=== PATIENT | male | born 1965 | race Caucasian/White ===

== ENCOUNTER 2021-04-11 14:35 | Inpatient (IN) | payer BC ==
--- NOTE | 2021-04-11 14:59 | EDM.PDOC ---
ED HPI GENERAL MEDICAL PROBLEM - General Chief Complaint: Respiratory Problem Stated Complaint: shortness of breath Time Seen by Provider: 04/11/21 14:35 Source of Information: Reports: Patient History Limitations: Reports: No Limitations - History of Present Illness INITIAL COMMENTS - FREE TEXT/NARRATIVE: Fili is a 55 year old male who presents to ER with complaints of increased shortness of breath, mild chest discomfort. Patient states noted same last evening when playing pickle ball. Tried to play through it but didn't tolerate well. Thought related to possibly being back in atrial fib but when rested, seemed to get better. Has history of paroxysmal atrial fib. Does take coumadin daily for this. Was taken off metoprolol some time ago as had been doing well. Does not believe he has had issues with atrial fib now for possibly 6 months. 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 Called his who made an appointment at the clinic but enroute here, felt more short of breath and lightheaded. Decided to call a friend to drive him the rest of the way here as was worried about passing out as his arms and face started to feel tingly. Admits to an ache in his chest, not real painful. No nausea/vomiting or diaphoresis. No fevers. No cough. Duration: Hour(s):, Waxing/Waning Location: Reports: Chest Quality: Reports: Ache Severity: Mild Improves with: Reports: Rest Worsens with: Reports: Movement Associated Symptoms: Reports: Chest Pain, Shortness of Breath. Denies: Confusion, Cough, Diaphoresis, Fever/Chills, Headaches, Loss of Appetite, Nausea/Vomiting, Syncope - Related Data Allergies Allergy/AdvReac Type Severity Reaction Status Date / Time No Known Allergies Allergy Verified 04/11/21 16:01 Home Meds: Home Meds Escitalopram [Lexapro] 10 mg PO DAILY 05/14/18 [History] Warfarin [Coumadin] 10 mg PO DAILY 04/11/21 [History] Warfarin [Coumadin] 15 mg PO DAILY 04/11/21 [History] Past Medical History Cardiovascular History: Reports: Afib Psychiatric History: Reports: Depression - Past Surgical History HEENT Surgical History: Reports: Other (See Below) Other HEENT Surgeries/Procedures: septoplasty GI Surgical History: Reports: Hernia Repair/Other ED ROS GENERAL - Review of Systems Review Of Systems: See Below Constitutional: Reports: Malaise. Denies: Fever, Chills, Weakness, Fatigue, Decreased Appetite HEENT: Denies: Ear Pain, Rhinitis, Sinus Problem, Throat Pain Respiratory: Reports: Shortness of Breath. Denies: Cough Cardiovascular: Reports: Chest Pain, Lightheadedness. Denies: Edema Endocrine: Reports: Fatigue GI/Abdominal: Denies: Abdominal Pain, Constipation, Diarrhea, Nausea, Vomiting : Reports: No Symptoms Musculoskeletal: Reports: No Symptoms Skin: Reports: No Symptoms Neurological: Reports: No Symptoms Psychiatric: Reports: No Symptoms ED EXAM, GENERAL - Physical Exam Exam: See Below Exam Limited By: No Limitations General Appearance: Alert, WD/WN, Mild Distress Ears: Normal External Exam, Normal TMs Nose: Normal Inspection, Normal Mucosa, No Blood Throat/Mouth: Normal Inspection, Normal Oropharynx Head: Normocephalic Neck: Normal Inspection, Supple, Non-Tender Respiratory/Chest: No Respiratory Distress, Lungs Clear, Normal Breath Sounds Cardiovascular: Irregularly Irregular GI/Abdominal: Normal Bowel Sounds, Soft, Non-Tender Extremities: Normal Inspection, No Pedal Edema Neurological: Alert, Oriented Skin Exam: Warm, Dry Course - Vital Signs Last Recorded V/S: Last Vital Signs Temp 98.6 F 04/11/21 14:35 Pulse 115 H 04/11/21 14:35 Resp 20 04/11/21 14:35 BP 134/77 04/11/21 14:35 Pulse Ox 99 04/11/21 14:35 - Orders/Labs/Meds Orders: Active Orders 24 hr Category Date Time Status Patient Status [ADT] Routine ADT 04/11/21 17:27 Active Cardiac Monitoring [RC] CONTINUOUS Care 04/11/21 17:28 Active Height and Weight [RC] UPON Care 04/11/21 17:27 Active Intake and Output [RC] QSHIFT Care 04/11/21 17:28 Active May Shower [RC] ASDIRECTED Care 04/11/21 17:27 Active Oxygen Therapy [RC] PRN Care 04/11/21 17:27 Active Up With Assistance [RC] ASDIRECTED Care 04/11/21 17:27 Active VTE/DVT Education [RC] PER UNIT ROUTINE Care 04/11/21 17:27 Active Vital Signs [RC] Q4H Care 04/11/21 17:27 Active Consult to Case Management/Winery Worker [CONS] Cons 04/11/21 17:27 Active Routine Heart Healthy Diet [DIET] Diet 04/11/21 Breakfast Active Chest 2V [CR] Stat Exams 04/11/21 14:49 Ordered BASIC METABOLIC PANEL,BMP [CHEM] Routine Lab 04/12/21 05:11 Ordered CBC WITH AUTO DIFF [HEME] Routine Lab 04/12/21 05:11 Ordered INR,PT,PROTHROMBIN TIME [COAG] Routine Lab 04/12/21 05:11 Ordered MAGNESIUM [CHEM] Stat Lab 04/11/21 17:32 Ordered Acetaminophen [TylenoL] Med 04/11/21 17:27 Ordered 650 mg PO Q4H PRN Diltiazem 125 MG in NS Adv @ 5 MG/HR(125ml) Med 04/11/21 16:15 Ordered Diltiazem 125 mg Sodium Chloride 0.9% [Normal Saline AdvBag] 100 ml IV TITRATE Escitalopram [Lexapro] Med 04/12/21 08:00 Ordered 10 mg PO DAILY Pharmacy Consult [Consult to Pharmacy] Med 04/11/21 17:30 Ordered 1 each .XX ASDIRECTED Warfarin [Coumadin] Med 04/12/21 08:00 Ordered 10 mg PO DAILY Warfarin [Coumadin] Med 04/12/21 08:00 Ordered 15 mg PO DAILY Resuscitation Status Routine Resus Stat 04/11/21 17:27 Ordered Medication Orders Acetaminophen (Acetaminophen 325 Mg Tab) 650 mg PO Q4H PRN PRN Reason: Pain (Mild 1-3)/fever Diltiazem HCl 125 mg/ Sodium (Chloride) 125 mls @ 5 mls/hr IV TITRATE KIMI; Protocol Last Admin: 04/11/21 17:26 Dose: 5 mg/hr, 5 mls/hr Documented by: Non-Formulary Medication (Escitalopram [Lexapro]) 10 mg PO DAILY [facility] Pharmacy Consult (Pharmacy Consult Order) 1 each .XX ASDIRECTED KIMI Warfarin Sodium (Warfarin 5 Mg Tab) 10 mg PO DAILY [facility] Warfarin Sodium (Warfarin 5 Mg Tab) 15 mg PO DAILY [facility] Labs: Laboratory Tests 04/11/21 04/11/21 04/11/21 Range/Units 14:59 14:59 14:59 WBC 7.1 (4.0-10.0) x10^3/uL RBC 5.12 (4.5-6.0) x10^6/uL Hgb 15.2 (14.0-18.0) g/dL Hct 42.6 (40.0-52.0) % MCV 83.2 (78.0-93.0) fL MCH 29.7 (26.0-32.0) pg MCHC 35.7 (32.0-36.0) g/dL RDW Coeff of Rubia 12.5 (10.0-15.0) % Plt Count 193 (130-400) x10^3/uL Immature Gran % (Auto) 0.10 (0.00-0.43) % Neut % (Auto) 55.8 (50.0-80.0) % Lymph % (Auto) 32.3 (25.0-50.0) % Falls % (Auto) 8.1 (2.0-11.0) % Eos % (Auto) 2.7 (0.0-4.0) % Baso % (Auto) 1.0 (0.2-1.2) % Neut # (Auto) 4.0 (1.8-7.7) x10^3/uL Lymph # (Auto) 2.3 (1.0-4.8) x10^3/uL Falls # (Auto) 0.6 (0.0-0.8) x10^3/uL Eos # (Auto) 0.2 (0.0-0.5) x10^3/uL Baso # (Auto) 0.1 (0.0-0.2) x10^3/uL Immature Gran # (Auto) 0.01 (0.00-0.07) x10^3/uL PT (9.9-12.5) SEC INR (2.0-3.5) D-Dimer, Quantitative 0.35 (<=0.58) mg/LFEU Sodium 140 (136-145) mmol/L Potassium 3.7 (3.5-5.1) mmol/L Chloride 106 (98-107) mmol/L Carbon Dioxide 20 L (21-32) mmol/L Anion Gap 17.7 H (5-15) mmol/L BUN 16 (7-18) mg/dL Creatinine 0.9 (0.70-1.30) mg/dL Est Cr Clr Drug Dosing TNP Estimated GFR (MDRD) > 60 Glucose 109 H (70-99) mg/dL Calcium 9.4 (8.5-10.1) mg/dL Corrected Calcium 9.5 (8.5-10.1) mg/dL Total Bilirubin 1.3 H (0.2-1.0) mg/dL AST 15 (15-37) U/L ALT 26 (16-63) U/L Alkaline Phosphatase 73 (46-116) U/L Lactate Dehydrogenase 176 (85-227) U/L Creatine Kinase 118 (39-308) U/L Troponin I High Sens 7 (<=76) ng/L C-Reactive Protein 0.8 (<=0.9) mg/dL Total Protein 7.3 (6.4-8.2) g/dL Albumin 3.9 (3.4-5.0) g/dL Globulin 3.4 Albumin/Globulin Ratio 1.15 SARS CoV-2 RNA Rapid MICHAEL (NEGATIVE) 04/11/21 04/11/21 Range/Units 14:59 16:23 WBC (4.0-10.0) x10^3/uL RBC (4.5-6.0) x10^6/uL Hgb (14.0-18.0) g/dL Hct (40.0-52.0) % MCV (78.0-93.0) fL MCH (26.0-32.0) pg MCHC (32.0-36.0) g/dL RDW Coeff of Rubia (10.0-15.0) % Plt Count (130-400) x10^3/uL Immature Gran % (Auto) (0.00-0.43) % Neut % (Auto) (50.0-80.0) % Lymph % (Auto) (25.0-50.0) % Falls % (Auto) (2.0-11.0) % Eos % (Auto) (0.0-4.0) % Baso % (Auto) (0.2-1.2) % Neut # (Auto) (1.8-7.7) x10^3/uL Lymph # (Auto) (1.0-4.8) x10^3/uL Falls # (Auto) (0.0-0.8) x10^3/uL Eos # (Auto) (0.0-0.5) x10^3/uL Baso # (Auto) (0.0-0.2) x10^3/uL Immature Gran # (Auto) (0.00-0.07) x10^3/uL PT 13.8 H (9.9-12.5) SEC INR 1.2 L (2.0-3.5) D-Dimer, Quantitative (<=0.58) mg/LFEU Sodium (136-145) mmol/L Potassium (3.5-5.1) mmol/L Chloride (98-107) mmol/L Carbon Dioxide (21-32) mmol/L Anion Gap (5-15) mmol/L BUN (7-18) mg/dL Creatinine (0.70-1.30) mg/dL Est Cr Clr Drug Dosing Estimated GFR (MDRD) Glucose (70-99) mg/dL Calcium (8.5-10.1) mg/dL Corrected Calcium (8.5-10.1) mg/dL Total Bilirubin (0.2-1.0) mg/dL AST (15-37) U/L ALT (16-63) U/L Alkaline Phosphatase (46-116) U/L Lactate Dehydrogenase (85-227) U/L Creatine Kinase (39-308) U/L Troponin I High Sens (<=76) ng/L C-Reactive Protein (<=0.9) mg/dL Total Protein (6.4-8.2) g/dL Albumin (3.4-5.0) g/dL Globulin Albumin/Globulin Ratio SARS CoV-2 RNA Rapid MICHAEL Negative (NEGATIVE) Meds: Medications Generic Name Dose Route Start Last Admin Trade Name Freq PRN Reason Stop Dose Admin Acetaminophen 650 mg 04/11/21 17:27 Acetaminophen 325 Mg Tab PO Q4H PRN Pain (Mild 1-3)/fever Diltiazem HCl 125 mg/ Sodium 125 mls @ 5 mls/hr 04/11/21 16:15 04/11/21 17:26 Chloride IV 5 mg/hr TITRATE KIMI 5 mls/hr Administration Protocol 5 MG/HR Non-Formulary Medication 10 mg 04/12/21 08:00 Escitalopram [Lexapro] PO DAILY [facility] Pharmacy Consult 1 each 04/11/21 17:30 Pharmacy Consult Order .XX ASDIRECTED [facility] Warfarin Sodium 10 mg 04/12/21 08:00 Warfarin 5 Mg Tab PO DAILY [facility] Warfarin Sodium 15 mg 04/12/21 08:00 Warfarin 5 Mg Tab PO DAILY [facility] Discontinued Medications Generic Name Dose Route Start Last Admin Trade Name Freq PRN Reason Stop Dose Admin Diltiazem HCl 10 mg 04/11/21 16:00 04/11/21 16:18 Diltiazem 50 Mg/10 Ml Sdv IVPUSH 04/11/21 16:01 10 mg ONETIME ONE Administration - Re-Assessments/Exams Free Text/Narrative Re-Assessment/Exam: 04/11/21 1600 Contacted [facility] and spoke with cardiology in regards to rate control related to his current atrial fib with lower blood pressure. Suggested Cardizem push and drip to determine if will convert to NSR and for rate control. Patient aware. Contacted Brock Wright in regards to admit. 04/11/21 17:20 Brock Wright here with patient. Departure - Departure Time of Disposition: 17:35 Disposition: Admitted As Inpatient 65 Condition: Fair Clinical Impression: Atrial fibrillation with rapid ventricular response Referrals: Brea Spain, ANALYTICAL MANAGER [Primary Care Provider] - Forms: ED Department Discharge Sepsis Event Note (ED) - Focused Exam Vital Signs: Vital Signs Temp Pulse Resp BP Pulse Ox 04/11/21 14:35 98.6 F 115 H 20 134/77 99 - My Orders Last 24 Hours: My Active Orders 04/11/21 14:49 Chest 2V [CR] Stat 04/11/21 16:15 Diltiazem 125 MG in NS Adv @ 5 MG/HR(125ml) Diltiazem 125 mg Sodium Chloride 0.9% [Normal Saline AdvBag] 100 ml IV TITRATE - Assessment/Plan Last 24 Hours: My Active Orders 04/11/21 14:49 Chest 2V [CR] Stat 04/11/21 16:15 Diltiazem 125 MG in NS Adv @ 5 MG/HR(125ml) Diltiazem 125 mg Sodium Chloride 0.9% [Normal Saline AdvBag] 100 ml IV TITRATE
[2021-04-11 15:31] LABS: CHLORIDE,CL 106 mmol/L (98-107); SODIUM,NA 140 mmol/L (136-145)
[2021-04-11 15:36] LABS: ANION GAP 17.7 mmol/L (5-15)
[2021-04-11] MEDS ORDERED: Diltiazem 50 MG/10 ML SDV IVPUSH ONE (16:00)
[2021-04-11] MEDS ORDERED: Diltiazem 125 MG in Sodium Chloride 0.9% 100 ML IV SCH (16:15)
[2021-04-11] MEDS ORDERED: Acetaminophen 325 MG Tab PO PRN (17:27)
--- NOTE | 2021-04-11 21:51 | HP ---
Admission history and physical to the [facility] acute care floor. CHIEF COMPLAINT: Shortness of breath. HISTORY OF PRESENT ILLNESS: A 55-year-old male patient with a past medical history of atrial fibrillation on Coumadin and depression, presented to the emergency room at [facility] for increased shortness of breath, and mild chest discomfort. The patient states that he noticed his symptoms starting last evening while he was playing pickleball. The patient tried to play through, but he did not tolerate it very well. The patient thought it possibly was related to his atrial fibrillation. He did try to rest, which seemed to make his symptoms better. The patient was taken off metoprolol some time ago and has been doing well. The patient states he believes he has not had any problems with his atrial fibrillation for about the past 6 months. 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 In the emergency room, telemetry showed uncontrolled atrial fibrillation. The patient's INR is subtherapeutic at 1.2. The patient was given a bolus of Cardizem, which did slow his rate into the 1-teens. The patient was started on a Cardizem drip. The patient states that he did not have any headaches, dizziness, or lightheadedness. His shortness of breath improved. No cough. Chest discomfort improved. No leg swelling. No palpitations. The patient denies any abdominal complaints. No skin problems. No recent infections. The patient has not had any fevers or chills. PAST MEDICAL HISTORY: 1. Sleep apnea. 2. Depression. 3. Metabolic syndrome. 4. Obesity. 5. Chronic atrial fibrillation. 6. High risk medication use on anticoagulation. PAST SURGICAL HISTORY: 1. Umbilical hernia repair. 2. Nasal septum surgery. FAMILY HISTORY: Noncontributory. SOCIAL HISTORY: The patient drinks alcohol occasionally. No drug use. The patient has never been a smoker. No secondhand smoke. The patient is . No vaping. LABORATORY STUDIES: 1. CBC: White blood cell count 7.1, hemoglobin 15.2, hematocrit 42.6, platelets 193,000. 2. D-dimer 0.35. 3. PT 13.8, INR 1.2. 4. CMP: Sodium 140, potassium 3.7, chloride 106, CO2 20, anion gap 17.7, BUN 16, creatinine 0.9, GFR greater than 60, glucose 109, calcium 9.4, bilirubin 1.3, AST 15, ALT 26, alkaline phosphatase 73. 5. LDH 176. 6. Creatine kinase 118. 7. Troponin 7. 8. CRP 0.8. 9. COVID-19 - negative. MEDICATIONS: 1. Lexapro 10 mg 1 tablet p.o. daily. 2. Coumadin 10 mg on Sundays, Tuesdays, . 3. Coumadin 15 mg on Mondays, Wednesdays, Fridays, and Saturdays. REVIEW OF SYSTEMS: See HPI. PHYSICAL EXAMINATION: Vital Signs: Temperature 98.6, pulse 115, blood pressure 134/77, respiratory rate 20, oxygen saturation 99% on room air, weight 308 pounds, height 73.5 inches. Skin: Intact, warm and dry. Respiratory: Lungs are clear throughout. Cardiovascular: Irregularly irregular rhythm, tachycardia, no murmurs. Abdomen: Soft, obese. Bowel sounds are normoactive x4. Extremities: No edema. Neurological: The patient is alert. The patient is oriented to person, place, and time. No focal neurological deficits. ASSESSMENT: 1. Uncontrolled atrial fibrillation. 2. Obstructive sleep apnea. 3. Major depressive disorder. 4. High-risk medication use on anticoagulation. PLAN: A 55-year-old male patient with a past medical history of atrial fibrillation and depression, will be admitted to the acute care floor at [facility] for uncontrolled atrial fibrillation. The patient will be on a Cardizem drip and telemetry. Continue home medications the same. DVT prophylaxis, on Coumadin. The patient is a code 1. The patient does wish to transfer to a higher level of care should the need arise. We will transition the patient over to p.o. Cardizem when appropriate. The patient agrees with plan of care and the admission. This patient was seen and examined by me as an [facility] provider. TB: 04/11/2021 17:43:58 MODL: 04/11/2021 21:45:10 /[id number]
[2021-04-12 07:24] LABS: ANION GAP 14.9 mmol/L (5-15); CHLORIDE,CL 108 mmol/L (98-107); SODIUM,NA 142 mmol/L (136-145)
[2021-04-12] MEDS ORDERED: Citalopram 20 MG Tab PO SCH (08:00)
[2021-04-12] MEDS ORDERED: Diltiazem 120 MG Cap.CD PO SCH (08:00)
--- NOTE | 2021-04-12 16:20 | CR ---
[id number] RAD/RAD Chest PA And Lateral EXAM: RAD Chest PA And Lateral INDICATION: Shortness of breath and atrial fibrillation. COMPARISON: None. DISCUSSION: The heart and lungs are normal in appearance. IMPRESSION: 1. Negative exam. Alvino lPunkett MD 04/12/21 [id number] Thank you for allowing us to participate in the care of your patient.
--- NOTE | 2021-04-12 18:42 | PCM.EKG ---
#1 Interpretation EKG Date: 04/11/21 Rhythm: A-Fib P-Wave: Absent QRS: Normal ST-T: Depressed QT: Prolonged Comparison: NA - No Prior EKG
--- NOTE | 2021-04-12 19:35 | DISCH ---
ADMITTING DIAGNOSES: 1. Uncontrolled atrial fibrillation. 2. Obstructive sleep apnea. 3. Major depressive disorder. 4. High-risk medication use, on anticoagulation. DISCHARGE DIAGNOSES: 1. Longstanding atrial fibrillation, controlled on medication. 2. Obstructive sleep apnea, stable. 3. Major depressive disorder, stable. 4. High-risk medication use, on anticoagulation. HISTORY OF PRESENT ILLNESS: This 55-year-old male patient presented to emergency room at [facility] yesterday afternoon for shortness of breath. The patient was found to be in uncontrolled atrial fibrillation. The patient has chronic atrial fibrillation, but has not been on any medication recently for rate control. The patient states that over the past couple of days he was feeling more short of breath and tired. He states yesterday morning he noticed that his heart rate seemed fast. While in the emergency room, the patient received Cardizem IV bolus, followed by a Cardizem drip. The patient's laboratory work was unremarkable. EKG showed uncontrolled atrial fibrillation with heart rates in the 140s to 160s. BRIEF HOSPITAL COURSE: The patient remained hemodynamically stable and afebrile. The patient was started on the Cardizem drip and switched to p.o. The patient's heart rate remained under 100 on the Cardizem p.o. The patient did not have any issues with urination or bowel movements. No shortness of breath or cough. No chest pain or palpitations. No leg swelling. The patient did not have any headaches, dizziness or lightheadedness. No fevers or chills. CONSULTATIONS: Case Management for discharge planning. DIET: Heart healthy. ACTIVITY: As tolerated. DISCHARGE LABORATORY WORK: 1. CBC: White blood cell count 5.5, hemoglobin 14.1, hematocrit 40.5, platelets 176,000. 2. PT 15.9, INR 1.4. 3. BMP: Sodium 142, potassium 3.9, chloride 108, CO2 of 23, anion gap 14.9, BUN 16, creatinine 0.9, GFR greater than 60, glucose 132, calcium 8.8. DISCHARGE MEDICATIONS: 1. Cardizem CD 120 mg p.o. daily. 2. Lexapro 10 mg 1 tablet p.o. daily. 3. Coumadin 10 mg p.o. on Thursday, Thursday, . 4. Coumadin 15 mg 1 tablet p.o. Thursday, Thursday, Thursday, Thursday. REVIEW OF SYSTEMS: See HPI. DISCHARGE PHYSICAL EXAMINATION: Vital Signs: Temperature 97.5, pulse 80, blood pressure 118/83, respiratory rate 20, oxygen saturation 98% on room air. Skin: Intact, warm, and dry. Respiratory: Lungs are clear throughout. Cardiovascular: Irregularly irregular rhythm, regular rate, no murmur. Abdomen: Soft, nontender. Bowel sounds are normoactive x4. Extremities: No edema. Neurological: The patient is alert. The patient is oriented to person, place, and time. No focal neurological deficits. ASSESSMENT: 1. Atrial fibrillation, controlled. 2. Obstructive sleep apnea. 3. Major depressive disorder. 4. High-risk medication use, on anticoagulation. PLAN: The patient will be discharged home today. The patient will be started on Cardizem 120 mg p.o. daily. His rate is well controlled on this medication. No changes with any other medications. The patient needs to follow with his PCP in 1 week for a recheck, sooner if any problems. Continue all other medications the same. The patient was discharged in hemodynamically stable condition. TB: 04/12/2021 13:17:39 MODL: 04/12/2021 19:28:06 /[id number]
[2021-04-12] MEDS ORDERED: Warfarin 5 MG Tab PO SCH (20:00)
[2021-04-14] MEDS ORDERED: Warfarin 5 MG Tab PO SCH (20:00)
== END 2021-04-12 15:00 | disposition home or self-care (01) | DRG 201 ==
LOC: VM.ED 14:35 → VM.MS 16:33
PROVIDERS: ADMIT Nurse Practitioner Family; ATTEND Nurse Practitioner Family
DX: I48.91 Unspecified atrial fibrillation (principal); G47.33 Obstructive sleep apnea (adult) (pediatric); F32.9 Major depressive disorder, single episode, unspecified; E66.9 Obesity, unspecified; E88.81 Metabolic syndrome and other insulin resistance; Z20.822 Contact with and (suspected) exposure to COVID-19; I45.81 Long QT syndrome; Z79.899 Other long term (current) drug therapy; Z79.01 Long term (current) use of anticoagulants; Z68.37 Body mass index [BMI] 37.0-37.9, adult
CPT/HCPCS: 36415; 71046; 80048; 80053; 82550; 83615; 83735; 84484; 85025; 85379; 85610; 86140; 93005; 96374; 99285-25; A9270-GY; J3490; U0002

== ENCOUNTER 2022-08-18 09:44 | Day surgery (SDC) | payer BC ==
[~2022-08-18 09:44] MED LIST: Lactated Ringers 1,000 ML IV SCH; Sodium Chloride 0.9% 10 ML Syringe FLUSH PRN
[2022-08-18] MEDS ORDERED: fentaNYL 100 MCG/2 ML SDV ONE (09:59)
[2022-08-18] MEDS ORDERED: Propofol 200 MG/20 ML SDV ONE ×2 (09:59→11:12)
== END 2022-08-18 12:55 | disposition home or self-care (01) ==
LOC: VM.SDS 09:44
PROVIDERS: ATTEND Surgery
DX: Z12.11 Encounter for screening for malignant neoplasm of colon (principal); G47.33 Obstructive sleep apnea (adult) (pediatric); F32.A Depression, unspecified; I48.91 Unspecified atrial fibrillation; I35.1 Nonrheumatic aortic (valve) insufficiency; E66.9 Obesity, unspecified; Z98.890 Other specified postprocedural states; Z79.899 Other long term (current) drug therapy; Z79.82 Long term (current) use of aspirin; Z68.39 Body mass index [BMI] 39.0-39.9, adult; Z91.048 Other nonmedicinal substance allergy status
CPT/HCPCS: 00812; J2704; J3010; J7120